=== PATIENT | male | born 1935 | race Caucasian/White ===

== ENCOUNTER → 2019-08-26 | Outpatient (CLI) | payer OTHER | END | disposition home or self-care (01) | LOC: CT 10:57 | DX: R51 Headache (principal); R42 Dizziness and giddiness ==

== ENCOUNTER → 2019-09-09 | Outpatient (CLI) | payer OTHER | END | disposition home or self-care (01) | LOC: CARD 00:10 | DX: I65.23 Occlusion and stenosis of bilateral carotid arteries (principal) ==

== ENCOUNTER 2019-10-22 08:48 | Emergency (ER) | payer OTHER ==
[~2019-10-22] VITALS: Wt 74.8 kg
[2019-10-22] MEDS ORDERED: ACETAMINOPHEN500 M4 PO (10:20)
== END 2019-10-22 10:16 | disposition home or self-care (01) ==
LOC: ED 08:48
DX: S86.911A Strain of unspecified muscle(s) and tendon(s) at lower leg level, right leg, initial encounter (principal); Z91.040 Latex allergy status; W10.8XXA Fall (on) (from) other stairs and steps, initial encounter; Y93.89 Activity, other specified; Y92.89 Other specified places as the place of occurrence of the external cause; Y99.8 Other external cause status

== ENCOUNTER 2020-05-29 17:19 | Inpatient (IN) | payer OTHER ==
[~2020-05-29] VITALS: Ht 177.8 cm; Wt 89.0 kg
[~2020-05-29 17:19] MED LIST: ACETAMINOPHEN500 M4 PO
[2020-05-29 17:21] VITALS: BP 172/90
[2020-05-29 18:54] LABS: HEMATOCRIT 50.3 % (42.0-52.0); MEAN CORPUSCULAR HGB 33.2 pg (27.0-31.0); MEAN CORPUSCULAR HGB CONC 33.2 g/dl (33.0-37.0); MEAN PLATELET VOLUME 9.9 fl (9.6-12.3); PLATELET COUNT AUTOMATED 393 10*3/uL (130-400); RED BLOOD COUNT 5.03 10*6/uL (4.50-5.90); RED CELL DISTRI WIDTH 12.3 % (0-14.5)
[2020-05-29 19:05] LABS: ACT PARTIAL THROMBO TIME 24.8 SECONDS (20.0-32.1)
[2020-05-29 19:13] LABS: TOTAL CELLS COUNTED 100 #CELLS
[2020-05-29 19:14] LABS: ALBUMIN 3.1 gm/dl (3.1-4.5); ALKALINE PHOSPHATASE 123 U/L (45-117); BUN 23 mg/dl (7-24); CHLORIDE 106 mmol/L (98-107); CPK 471 U/L (39-308); CREATININE 1.06 mg/dL (0.70-1.30); LIPASE 515 U/L (73-393); POTASSIUM 3.7 mmol/L (3.5-5.1); SGOT/AST 36 IU/L (3-35); SGPT/ALT 34 U/L (12-78); SODIUM 139 mmol/L (136-145); TOTAL PROTEIN 6.6 gm/dL (6.4-8.2)
[2020-05-29 19:15] LABS: POLYCHROMASIA SLIGHT
[2020-05-29 19:16] LABS: BURR CELLS FEW; PLATELET SUFFICIENCY NORMAL (NORMAL); SCHISTOCYTES FEW
[2020-05-29 19:21] LABS: CKMB 10.2 ng/ml (0.5-3.6); TROPONIN I < 0.015 ng/ml (<0.045)
[2020-05-29 21:03] LABS: BILIRUBIN Negative (Negative); BLOOD 2+ (Negative); CLARITY Turbid (Clear); COLOR Dark Yellow (Yellow); GLUCOSE Negative (Negative); KETONE Trace (Negative); LEUKO ESTERASE 3+ (Negative); NITRITE Negative (Negative)
[2020-05-29 21:17] LABS: BACTERIA 4+; RBC 16-20 rbc/hpf (0-2); WBC TNTC wbc/hpf (0-5)
[2020-05-30 00:15] VITALS: BP 152/102
[2020-05-30] MEDS ORDERED: RIVASTIGMINE T1.5 M1 PO (00:42)
[2020-05-30] MEDS ORDERED: METOPROLOL SUCC25 M2 PO (00:42)
[2020-05-30] MEDS ORDERED: LISINOPRIL5 MG PO (00:43)
[2020-05-30] MEDS ORDERED: LASIX40 MG PO (00:43)
[2020-05-30] MEDS ORDERED: WARFARIN SODIUM3 MG PO (00:44)
[2020-05-30 02:41] LABS: BASO # 0.1 10*3/uL (0.0-0.1); BASO % 0.4 % (0.0-1.0); EOS % 0.3 % (1.0-4.0); HEMATOCRIT 47.1 % (42.0-52.0); LYMPH # 1.3 10*3/uL (1.3-4.4); LYMPH % 11.5 % (27.0-41.0); MEAN CELL VOLUME 99.8 fl (80.0-94.0); MEAN CORPUSCULAR HGB 33.7 pg (27.0-31.0); MEAN CORPUSCULAR HGB CONC 33.8 g/dl (33.0-37.0); MEAN PLATELET VOLUME 9.8 fl (9.6-12.3); MONO # 1.3 10*3/uL (0.1-1.0); MONO % 11.1 % (3.0-9.0); NEUT # 8.8 10*3/uL (2.3-7.9); NEUT % 76.1 % (47.0-73.0); PLATELET COUNT AUTOMATED 353 10*3/uL (130-400); RED BLOOD COUNT 4.72 10*6/uL (4.50-5.90); RED CELL DISTRI WIDTH 12.3 % (0-14.5); WHITE BLOOD COUNT 11.6 10*3/uL (4.8-10.8)
[2020-05-30 02:54] LABS: BUN 25 mg/dl (7-24); CHLORIDE 109 mmol/L (98-107); CREATININE 0.95 mg/dL (0.70-1.30); POTASSIUM 3.9 mmol/L (3.5-5.1); SODIUM 141 mmol/L (136-145)
[2020-05-30 08:00] VITALS: BP 156/76
== END 2020-05-30 09:13 | disposition other institution (70) | DRG 871 ==
LOC: ED → 4E 21:21 → EDHOLD 21:21 → 4E 22:11
PROVIDERS: Nurse Practitioner Family; ADMIT Internal Medicine; ATTEND Internal Medicine
DX: A41.9 Sepsis, unspecified organism (principal); G93.41 Metabolic encephalopathy; N30.00 Acute cystitis without hematuria; R65.20 Severe sepsis without septic shock; T79.6XXA Traumatic ischemia of muscle, initial encounter; I48.91 Unspecified atrial fibrillation; W19.XXXA Unspecified fall, initial encounter; Y93.89 Activity, other specified; Y92.89 Other specified places as the place of occurrence of the external cause; Y99.8 Other external cause status; I50.9 Heart failure, unspecified; I11.0 Hypertensive heart disease with heart failure; J44.9 Chronic obstructive pulmonary disease, unspecified; Z79.01 Long term (current) use of anticoagulants